=== PATIENT | male | born 2000 | race African-American/Black ===

== ENCOUNTER 2023-02-08 19:27 | Emergency (ER) | payer OTHER ==
[~2023-02-08] VITALS: Ht 177.8 cm; Wt 84.0 kg
[2023-02-09 01:12] VITALS: BP 120/56; TEMP 97.8; O2SAT 100
[2023-02-09] MEDS ORDERED: IBUP80TA PO (02:01)
== END 2023-02-09 02:08 | disposition home or self-care (01) ==
LOC: M ED 19:27
DX: R22.43 Localized swelling, mass and lump, lower limb, bilateral (principal); M79.671 Pain in right foot; M79.672 Pain in left foot